=== PATIENT | female | born 1935 | race Caucasian/White ===

== ENCOUNTER → 2017-04-05 | Outpatient (CLI) | payer MEDICARE ==
[~2017-04-05] MED LIST: ACET-2743 PO; AMOX-429 PO; APIX5TAB PO; ASPI-1197 PO; CALC1TAB3 PO; CARV12.580 PO; DIGO0.12 PO; FURO40TA7 PO; Losartan Potassium PO; MEGE40 PO; OMEP20TA2 PO; SPIR25TA PO
== END | disposition home or self-care (01) ==
LOC: SHCH 13:52
PROVIDERS: ATTEND Internal Medicine Cardiovascular Disease
DX: I08.1 Rheumatic disorders of both mitral and tricuspid valves (principal)
CPT/HCPCS: 93306